=== PATIENT | male | born 1945 | race Caucasian/White ===

== ENCOUNTER → 2016-06-29 | Outpatient (CLI) | payer MEDICARE ==
[~2016-06-29] MED LIST: ASPIRIN81 M1 PO; FLOMAX0.4 MG PO; LOPRESSOR25 MG PO; NEXIUM40 MG PO; NORCO 325 MG-51 TAB PO; PLAVIX75 MG PO; SYNTHROID0.125 MG PO; ZOCOR5 MG PO
--- NOTE | ~2016-06-29 | PF ---
[place], [place] PULMONARY FUNCTION TEST NAME[facility] [id number] UNIT #: [id number] ROOM: DOCTOR: NEEL VANEGAS MD,RENATA BIRTHDATE: [birth year] DOS: 06/29/2016 COMPLETE PULMONARY FUNCTION TEST The test was ordered by Dr. Mcarthur. The test was completed on 06/29/2016. HISTORY: The patient recorded a 70-year-old male, height of 70 inches, weight of 177 pounds with BMI 25.4. The patient reported symptoms of shortness of breath with exertion with nonproductive cough. Tobacco use noted only for 4 years as 1 pack of cigarettes per day. The patient has not smoked any cigarette for the past 56 years. SPIROMETRY: The FVC were recorded 4.28 liters as 96% predicted value normal. FEV1 for the patient was noted as 3.16 liters as 96% predicted value normal as well. Ratio of FEV1/FVC was recorded 74%. The patient's lung volumes, thoracic gas volume recorded 102%, residual volume 127%, total lung capacity 99%. RV/TLC ratio 126, which were noted mildly increased suggests a possibility of mild air trapping. The patient's lung diffusion was noted as 75%, low normal range. The patient's airway resistance and passive conductance were noted as normal with partial improvement for the patient occurred post-bronchodilator test. FINAL IMPRESSION: The test was suggestive of mild reversible obstructive lung disease as bronchial asthma should be considered with clinical history for this patient. RENATA SHAIKH MD CM:PFREPORT:PULMONARY FUNCTION TEST [id number] RENATA VANEGAS MD
== END | disposition home or self-care (01) ==
LOC: CP 06:59
DX: I10 Essential (primary) hypertension (principal); M47.894 Other spondylosis, thoracic region; R05 Cough; R06.02 Shortness of breath

== ENCOUNTER → 2016-07-11 | Outpatient (CLI) | payer MEDICARE | END | disposition home or self-care (01) | LOC: CARD 08:58 | DX: I37.1 Nonrheumatic pulmonary valve insufficiency (principal); I07.1 Rheumatic tricuspid insufficiency ==

== ENCOUNTER → 2016-08-04 | Outpatient (CLI) | payer MEDICARE | END | disposition home or self-care (01) | LOC: CT 07:58 | DX: M19.012 Primary osteoarthritis, left shoulder (principal); J43.9 Emphysema, unspecified ==

== ENCOUNTER → 2017-07-18 | Outpatient (CLI) | payer MEDICARE | END | disposition home or self-care (01) | LOC: CARD 03:42 | DX: Z01.812 Encounter for preprocedural laboratory examination (principal); R01.1 Cardiac murmur, unspecified ==

== ENCOUNTER → 2017-07-27 | Outpatient (CLI) | payer MEDICARE | END | disposition home or self-care (01) | LOC: CT 00:12 | DX: G44.201 Tension-type headache, unspecified, intractable (principal); G45.9 Transient cerebral ischemic attack, unspecified; Z85.810 Personal history of malignant neoplasm of tongue ==

== ENCOUNTER → 2017-09-29 | Outpatient (CLI) | payer MEDICARE | END | disposition home or self-care (01) | LOC: RAD 11:10 | DX: J40 Bronchitis, not specified as acute or chronic (principal); I10 Essential (primary) hypertension ==

== ENCOUNTER 2019-05-12 19:28 | Emergency (ER) | payer MEDICARE ==
[~2019-05-12] VITALS: Ht 177.8 cm; Wt 77.1 kg
[~2019-05-12 19:28] MED LIST changes: +B121000 MCG/1 IM; +GOOD NEIGHBOR150 MG PO; +LORATADINE10 M3 PO; +PERIDEX118 ML MM; +PLAVIX75 M1 PO; +Synthroid,Lev100 MCG PO; +VITAMIN D-32000 UNI1 PO
[2019-05-12 19:44] VITALS: BP 144/81
== END 2019-05-13 00:25 | disposition home or self-care (01) ==
LOC: ED 19:28
DX: K94.23 Gastrostomy malfunction (principal); I10 Essential (primary) hypertension; K21.9 Gastro-esophageal reflux disease without esophagitis; E78.00 Pure hypercholesterolemia, unspecified; E07.9 Disorder of thyroid, unspecified; Z79.82 Long term (current) use of aspirin; Z79.899 Other long term (current) drug therapy; Z98.890 Other specified postprocedural states; Z86.73 Personal history of transient ischemic attack (TIA), and cerebral infarction without residual deficits; Y84.8 Other medical procedures as the cause of abnormal reaction of the patient, or of later complication, without mention of misadventure at the time of the procedure

== ENCOUNTER → 2019-10-07 | Outpatient (CLI) | payer MEDICARE | END | disposition home or self-care (01) | LOC: CARD 08:04 | DX: R01.1 Cardiac murmur, unspecified (principal) ==

== ENCOUNTER → 2019-12-09 | Outpatient (CLI) | payer MEDICARE ==
[2019-12-09 13:56] LABS: BUN 14 mg/dl (7-24); CREATININE 0.78 mg/dL (0.70-1.30)
== END | disposition home or self-care (01) ==
LOC: LAB 13:28
PROVIDERS: ATTEND Internal Medicine Hematology & Oncology
DX: Z51.11 Encounter for antineoplastic chemotherapy (principal); C05.1 Malignant neoplasm of soft palate; C05.0 Malignant neoplasm of hard palate

== ENCOUNTER 2020-02-13 16:03 | Emergency (ER) | payer MEDICARE ==
[2020-02-13] VITALS (8 sets, daily range): BP systolic 131–158; BP diastolic 56–68
[~2020-02-13] VITALS: Ht 172.7 cm; Wt 77.1 kg
[2020-02-13 17:13] LABS: BASO % 0.3 % (0.0-1.0); EOS # 0.2 10*3/uL (0.0-0.4); EOS % 1.5 % (1.0-4.0); LYMPH % 7.9 % (27.0-41.0); MEAN CELL VOLUME 93.4 fl (80.0-94.0); MEAN CORPUSCULAR HGB 28.6 pg (27.0-31.0); MEAN CORPUSCULAR HGB CONC 30.7 g/dl (33.0-37.0); MONO # 0.4 10*3/uL (0.1-1.0); MONO % 3.4 % (3.0-9.0); NEUT # 10.5 10*3/uL (2.3-7.9); NEUT % 83.5 % (47.0-73.0); PLATELET COUNT AUTOMATED 255 10*3/uL (130-400); RED BLOOD COUNT 2.13 10*6/uL (4.50-5.90); RED CELL DISTRI WIDTH 21.7 % (0-14.5); WHITE BLOOD COUNT 12.6 10*3/uL (4.8-10.8)
[2020-02-13 17:25] LABS: ALBUMIN 2.7 gm/dl (3.1-4.5); ALKALINE PHOSPHATASE 115 U/L (45-117); BUN 15 mg/dl (7-24); CHLORIDE 100 mmol/L (98-107); CREATININE 0.58 mg/dL (0.70-1.30); LIPASE 44 U/L (73-393); POTASSIUM 3.9 mmol/L (3.5-5.1); SGOT/AST 14 IU/L (3-35); SGPT/ALT 17 U/L (12-78); SODIUM 134 mmol/L (136-145); TOTAL PROTEIN 6.6 gm/dL (6.4-8.2)
[2020-02-13 17:28] LABS: TROPONIN I < 0.015 ng/ml (<0.045)
[2020-02-13 17:29] LABS: HEMATOCRIT 19.9 % (42.0-52.0)
[2020-02-13 17:42] LABS: TOTAL CELLS COUNTED 100 #CELLS
[2020-02-13 17:44] LABS: ACT PARTIAL THROMBO TIME 26.8 SECONDS (20.0-32.1)
[2020-02-13 17:47] LABS: STOMATOCYTE MODERATE
[2020-02-13 18:21] LABS: BILIRUBIN Negative (Negative); BLOOD Negative (Negative); CLARITY Clear (Clear); COLOR Yellow (Yellow); GLUCOSE Negative (Negative); KETONE Negative (Negative); LEUKO ESTERASE Negative (Negative); NITRITE Negative (Negative); PH 7.5 (4.5-8.0); SPECIFIC GRAVITY 1.015 (1.001-1.030)
[2020-02-13 18:36] LABS: WBC 0-2 wbc/hpf (0-5)
[2020-02-13 18:42] LABS: PLATELET SUFFICIENCY NORMAL (NORMAL)
== END 2020-02-14 | disposition home or self-care (01) ==
LOC: ED 16:03
PROVIDERS: Nurse Practitioner Family
DX: D64.9 Anemia, unspecified (principal); Z79.82 Long term (current) use of aspirin; Z79.899 Other long term (current) drug therapy

== ENCOUNTER 2020-03-08 21:23 | Emergency (ER) | payer MEDICARE ==
[~2020-03-08] VITALS: Ht 175.2 cm; Wt 77.1 kg
[2020-03-08 21:33] VITALS: BP 98/56
[2020-03-08 22:20] LABS: BASO % 0.2 % (0.0-1.0); EOS # 0.1 10*3/uL (0.0-0.4); EOS % 0.7 % (1.0-4.0); HEMATOCRIT 30.6 % (42.0-52.0); LYMPH # 1.3 10*3/uL (1.3-4.4); LYMPH % 13.9 % (27.0-41.0); MEAN CELL VOLUME 96.8 fl (80.0-94.0); MEAN CORPUSCULAR HGB 30.4 pg (27.0-31.0); MEAN CORPUSCULAR HGB CONC 31.4 g/dl (33.0-37.0); MEAN PLATELET VOLUME 9.3 fl (9.6-12.3); MONO # 0.8 10*3/uL (0.1-1.0); MONO % 8.7 % (3.0-9.0); NEUT # 7.1 10*3/uL (2.3-7.9); NEUT % 75.9 % (47.0-73.0); PLATELET COUNT AUTOMATED 372 10*3/uL (130-400); RED BLOOD COUNT 3.16 10*6/uL (4.50-5.90); RED CELL DISTRI WIDTH 19.1 % (0-14.5); WHITE BLOOD COUNT 9.4 10*3/uL (4.8-10.8)
== END 2020-03-08 23:39 | disposition home or self-care (01) ==
LOC: ED 21:23
PROVIDERS: Physician Assistant
DX: R04.0 Epistaxis (principal); C79.89 Secondary malignant neoplasm of other specified sites; I10 Essential (primary) hypertension; K21.9 Gastro-esophageal reflux disease without esophagitis; E78.00 Pure hypercholesterolemia, unspecified; E07.89 Other specified disorders of thyroid; Z85.810 Personal history of malignant neoplasm of tongue; Z79.82 Long term (current) use of aspirin; Z79.899 Other long term (current) drug therapy; Z98.890 Other specified postprocedural states; Z86.73 Personal history of transient ischemic attack (TIA), and cerebral infarction without residual deficits